=== PATIENT | male | born 1980 | race Caucasian/White ===

== ENCOUNTER → 2016-10-20 | Outpatient (CLI) | payer BC ==
--- NOTE | 2016-10-25 14:17 | RSPPFT ---
DATE OF PROCEDURE: 10/20/16 COMMENTS: Spirometry shows FVC of 5.4 at 103% of predicted, FEV1 of 3.8 at 97%, FEV1/FVC ratio is normal. Flow is normal at FEF 25, FEF 50 and FEF 25-75. There is a mild response after bronchodilator treatment. Lung volumes show residual volume is normal. TLC is normal. Diffusion capacity is normal. Flow volume loop indicates a normal pattern. IMPRESSION: 1. Normal spirometry. 2. Mild response after bronchodilator treatment. 3. Normal lung volumes. 4. Diffusion capacity is normal.
== END ==
LOC: PHRSP 07:09
PROVIDERS: ATTEND Specialist
DX: R05 Cough (principal)
CPT/HCPCS: 94060; 94726; 94729